=== PATIENT | male | born 1990 | race African-American/Black ===

== ENCOUNTER 2017-08-03 19:19 | Emergency (ER) | payer OTHER ==
[~2017-08-03] VITALS: Ht 172.7 cm; Wt 78.0 kg
[2017-08-03] MEDS ORDERED: TUSSI PRES-B L120 M1 PO (22:04)
== END 2017-08-03 22:04 | disposition home or self-care (01) ==
LOC: ER 19:19
DX: B34.9 Viral infection, unspecified (principal)